=== PATIENT | female | born 1990 | race African-American/Black ===

== ENCOUNTER 2017-08-04 17:33 | Emergency (ER) | payer BC, OTHER ==
[~2017-08-04] VITALS: Ht 180.3 cm; Wt 147.3 kg
[2017-08-04 17:44] VITALS: BP 146/100
[2017-08-04] MEDS ORDERED: PLEASE ENTER ALLERGIES MC SCH (18:30)
[2017-08-04] MEDS ORDERED: PROPARACAINE OPHTH 0.5%, 15ML EACHEYE ONE (18:30)
[2017-08-04] MEDS ORDERED: FLUORESCEIN OPHTHALMIC 1 MG STRIP EACHEYE ONE (18:30)
[2017-08-04] MEDS ORDERED: PROPARACAINE OPHTH 0.5%, 15ML ONE (18:43)
== END 2017-08-04 19:33 | disposition home or self-care (01) ==
LOC: ED 19:15
DX: S05.02XA Injury of conjunctiva and corneal abrasion without foreign body, left eye, initial encounter (principal); S05.01XA Injury of conjunctiva and corneal abrasion without foreign body, right eye, initial encounter; X58.XXXA Exposure to other specified factors, initial encounter; Y93.89 Activity, other specified; Y92.89 Other specified places as the place of occurrence of the external cause; Y99.8 Other external cause status
CPT/HCPCS: 99283